=== PATIENT | male | born 1960 | race Caucasian/White ===

== ENCOUNTER 2021-09-19 12:08 | Inpatient (IN) | payer OTHER ==
[~2021-09-19] VITALS: Ht 172.7 cm; Wt 73.0 kg
[2021-09-19] VITALS (9 sets, daily range): BP systolic 112–129; BP diastolic 61–97
--- NOTE | 2021-09-19 12:08 | NUR ---
RECEIVED PT 61 YRS MALE WAKING IN FROM [facility] C/O ABNORMALE EGG DINESES CHEST PAIN c/o chest with exertion
--- NOTE | 2021-09-19 12:10 | NUR ---
SEEN BY DR. WU
--- NOTE | 2021-09-19 12:15 | NUR ---
EKG DONE BLOOD DROW AND SEND TO LAB
--- NOTE | 2021-09-19 12:30 | NUR ---
DEL DAY SENT TO LAB
--- NOTE | 2021-09-19 12:40 | NUR ---
SEEN BY INFORMATION SYSTEMS PROFESSOR ARLEY ROCA
[2021-09-19 12:53] LABS: BASOPHILS % (AUTO) 0.7 % (0.0-2.0); EOSINOPHILS % (AUTO) 2.4 % (0.0-6.0); HEMATOCRIT 45 % (39-51); HEMOGLOBIN 14.9 g/dL (13.5-17.5); LYMPHOCYTES # (AUTO) 1.2 K/uL (0.8-4.8); LYMPHOCYTES % (AUTO) 24.3 % (20.0-44.0); MEAN CORPUSCULAR HGB CONC 33 g/dl (31.0-36.0); MEAN CORPUSCULAR VOLUME 90 fL (80-96); MONOCYTES # (AUTO) 0.7 K/uL (0.1-1.30); MONOCYTES % (AUTO) 13.7 % (2.0-12.0); NEUTROPHILS % (AUTO) 58.9 % (43.0-81.0); PLATELET COUNT (AUTO) 275 K/uL (150-450); RED BLOOD CELL COUNT(AUTO) 4.95 MIL/uL (4.5-6.0); WHITE BLOOD COUNT (AUTO) 5.1 K/uL (4.3-11.0)
--- NOTE | 2021-09-19 12:53 | NUR ---
PLAN FOR PT TO CARDIAC CATH DINESESS CHEST PAIN
--- NOTE | 2021-09-19 12:55 | NUR ---
MOVESHEET SUBMITTED TO ADMITING
[2021-09-19 12:56] LABS: CALCIUM, SERUM 9.3 mg/dL (8.5-10.1); POTASSIUM 3.7 mmol/L (3.5-5.1)
[2021-09-19] MEDS ORDERED: ACETAMINOPHEN 325 MG TABLET PO PRN (13:00)
[2021-09-19] MEDS ORDERED: ONDANSETRON HCL/PF 4 MG/2 ML VIAL IVP PRN (13:00)
[2021-09-19] MEDS ORDERED: NITROGLYCERIN 0.4 MG/TAB BOTTLE SL PRN (13:00)
[2021-09-19] MEDS ORDERED: HYDROCODONE/APAP 5/325MG TABLET PO PRN (13:00)
[2021-09-19] MEDS ORDERED: Z GUARD REMEDY 4 OZ OINT TP PRN (13:00)
[2021-09-19] MEDS ORDERED: MAG HYDROX/AL HYDROX/SIMETH 30 ML UDC PO PRN (13:00)
[2021-09-19] MEDS ORDERED: IODIXANOL 320MG/ML 50 ML IV ONE (13:25)
[2021-09-19] MEDS ORDERED: IODIXANOL 150 ML IV ONE (13:25)
[2021-09-19] MEDS ORDERED: IV NS 0.9% 1,000 ML ONE (13:25)
[2021-09-19] MEDS ORDERED: LIDOCAINE HCL/MPF 1% 30 ML VIAL IJ ONE (13:26)
[2021-09-19] MEDS ORDERED: NITROGLYCERIN IN 5 % DEXTROSE 250 ML IV ONE (13:26)
--- NOTE | 2021-09-19 13:27 | NUR ---
no chest pain waing for lab result
[2021-09-19] MEDS ORDERED: MIDAZOLAM HCL 2 MG/2ML VIAL ONE (14:31)
[2021-09-19] MEDS ORDERED: FENTANYL PF 100MCG/2ML AMPUL ONE (14:31)
[2021-09-19] MEDS ORDERED: HEPARIN SODIUM, PORCINE 1,000 UNIT/ML VIAL ONE (15:39)
--- NOTE | 2021-09-19 15:49 | NUR ---
BED 261 ICU. ADMITTING NOTIFIED, NURSE NOTIFIED.
[2021-09-19] MEDS ORDERED: ASPIRIN 81 MG TAB.CHEW ONE (15:51)
[2021-09-19] MEDS ORDERED: TICAGRELOR 90 MG TABLET PO ONE (15:51)
--- NOTE | 2021-09-19 16:21 | NUR ---
CALLED FOR REPORT, NURSE NOT AVAILABLE. WILL CALL BACK IN 10MIN
[2021-09-19] MEDS ORDERED: MORPHINE SULFATE INJ 4 MG/ML DISP.SYRIN IV PRN (16:30)
--- NOTE | 2021-09-19 16:52 | NUR ---
RN NOTE PATIENT RECEIVED, AWAKE, A&OX4. PATIENT ON RA WITH NO SIGNS OF LABORED BREATHING SAT 98% ON BEDSIDE MONITOR. PT DOES NOT REPORT CHEST PAIN AT THIS TIME. TR BAND IN PLACE ON RIGHT WRIST WITH 18CC OF AIR PLACED AT 1613 PER REPORT FROM NURSING PROGRAM MANAGER NURSE. RIGHT HAND WARM WITH NORMAL SKIN COLOR, NO SIGNS OF BLEEDING AT TR BAND SITE. RIGHT AC AND LEFT AC SL IN PLACE. BED LOCKED AND IN LOWEST POSITION, CALL LIGHT WITHIN REACH, 3 SIDE RAILS UP.
[2021-09-19] MEDS: TICAGRELOR 90 MG TABLET PO SCH (17:30)
--- NOTE | 2021-09-19 18:15 | NUR ---
RN NOTE 3CC OF AIR REMOVED FROM TR BAND PER ORDER, NO SIGNS OF BLEEDING.
--- NOTE | 2021-09-19 18:31 | NUR ---
RN NOTE 4CC OF AIR REMOVED FOR TR BAND. NO SIGNS OF BLEEDING, NO REPORT OF CHEST PAIN.
--- NOTE | 2021-09-19 18:41 | NUR ---
RN CLOSING NOTE PATIENT REMAINS IN BED, A&OX4. PATIENT ON RA WITH NO SIGNS OF LABORED BREATHING AT THIS TIME. SR ON MONITOR. TR BAND IN PLACE, 7CC OUT OF 18CC REMOVED SO FAR WITH NO SIGNS OF BLEEDING AT SITE. RIGHT AND LEFT AC SL IN PLACE. BED LOCKED AND IN LOWEST POSITION, CALL LIGHT WITHIN REACH, 2 SIDE RAILS UP. WILL ENDORSE TO CHRONOMETER REPAIRER RN FOR BHUPENDRA.
--- NOTE | 2021-09-19 18:48 | NUR ---
RN NOTE 4CC OF AIR REMOVED FROM TR BAND. NO SIGNS OF BLEEDING.
--- NOTE | 2021-09-19 19:08 | NUR ---
RN NOTE 4CC OF AIR REMOVED FROM TR BAND. NO SIGNS OF BLEEDING.
--- NOTE | 2021-09-19 19:44 | NUR ---
ICU/RN: LAST 3ML AIR REMOVED FROM TC BAND. BAND REMOVED. NO BLEEDING NOTED. TRANSPARENT DRESSING APPLIED.
[2021-09-19] MEDS: METOPROLOL TARTRATE 25 MG TABLET PO SCH (21:00)
[2021-09-19] MEDS ORDERED: ATORVASTATIN 40 MG TABLET PO SCH (22:00)
[2021-09-19] MEDS ORDERED: MAGNESIUM HYDROXIDE 30 ML UDC PO PRN (22:00)
[2021-09-20] VITALS (13 sets, daily range): BP systolic 125–146; BP diastolic 79–93
[2021-09-20 04:55] LABS: BASOPHILS % (AUTO) 0.7 % (0.0-2.0); CALCIUM, SERUM 9.1 mg/dL (8.5-10.1); HEMATOCRIT 43 % (39-51); HEMOGLOBIN 14.6 g/dL (13.5-17.5); LYMPHOCYTES # (AUTO) 1.2 K/uL (0.8-4.8); LYMPHOCYTES % (AUTO) 22.5 % (20.0-44.0); MEAN CORPUSCULAR HGB CONC 34 g/dl (31.0-36.0); MEAN CORPUSCULAR VOLUME 89 fL (80-96); MONOCYTES # (AUTO) 0.6 K/uL (0.1-1.30); MONOCYTES % (AUTO) 11.7 % (2.0-12.0); NEUTROPHILS # (AUTO) 3.2 K/uL (1.8-8.9); NEUTROPHILS % (AUTO) 61.1 % (43.0-81.0); PHOSPHORUS 3.3 mg/dL (2.5-4.9); PLATELET COUNT (AUTO) 256 K/uL (150-450); POTASSIUM 3.9 mmol/L (3.5-5.1); RED BLOOD CELL COUNT(AUTO) 4.83 MIL/uL (4.5-6.0); WHITE BLOOD COUNT (AUTO) 5.3 K/uL (4.3-11.0)
[2021-09-20 05:09] LABS: THYROID STIMULATING HORMONE 1.411 uIU/mL (0.358-3.74)
[2021-09-20] MEDS ORDERED: PANTOPRAZOLE 40 MG TABLET.DR PO SCH (07:30)
--- NOTE | 2021-09-20 08:00 | NUR ---
rn notes received patient in the bed a/ox4. refused pain, right FA cath insertion side intact. due medication administered. patient tolerated breakfast well. seen boatbuilder wood Dr Loamx, and patient will go home in afternoon, will follow pcp, and boatbuilder wood. patient ambulatory, self care. no dizziness notes. was complaining of wheezing, get one time order via Dr Lomax breathing tx. order taken and carried out.
[2021-09-20] MEDS: METOPROLOL TARTRATE 25 MG TABLET PO SCH (08:03)
[2021-09-20] MEDS: TICAGRELOR 90 MG TABLET PO SCH (08:03)
[2021-09-20] MEDS ORDERED: methylPREDNISolone SOD SUCC 125 MG/2ML VIAL IV ONE (09:00)
[2021-09-20] MEDS ORDERED: ASPIRIN EC 81 MG TABLET.DR PO SCH (09:00)
[2021-09-20] MEDS ORDERED: ALBUTEROL HALF STRENGTH 1.25 MG/3 ML VIAL.NEB ONE (09:41)
[2021-09-20] MEDS ORDERED: DIAZ10TA PO (10:06)
[2021-09-20] MEDS ORDERED: ASPI-1169 PO (10:06)
[2021-09-20] MEDS ORDERED: TICA90TA PO (10:06)
[2021-09-20] MEDS ORDERED: METO25TA6 PO (10:09)
[2021-09-20] MEDS ORDERED: ATOR40TA PO (10:09)
[2021-09-20] MEDS ORDERED: ALBUTEROL HALF STRENGTH 1.25 MG/3 ML VIAL.NEB NEB ONE (11:30)
--- NOTE | 2021-09-20 12:35 | NUR ---
rn trauma notes Discharge diagnosis <Chest pain, unstable angina Abnormal EKG Status post PCI, severe disease, involving the midportion of the LAD-treated successfully with drug-eluting, stent (09/19/2021). patient discharge at this time going home self care. med reconciliation, and discharge order reviewed, and explained to the patient. patient sign paperwork, belonging with the patient. Discharge instructions <home, Follow-up with Dr. Ricardo next week, take medication as prescribed. medication Brilinta prescription handed to the patient. The patient verbalized understanding of care. escorted patient to the lobby for safety. 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
== END 2021-09-20 13:19 | disposition home or self-care (01) | DRG 247 ==
LOC: ER 12:19 → ICU 15:52
PROVIDERS: ADMIT Nurse Practitioner Acute Care; ATTEND Nurse Practitioner Acute Care
PROC: 027034Z Dilation of Coronary Artery, One Artery with Drug-eluting Intraluminal Device, Percutaneous Approach (ICD-10-PCS; principal; 2021-09-19)
PROC: 4A023N7 Measurement of Cardiac Sampling and Pressure, Left Heart, Percutaneous Approach (ICD-10-PCS; 2021-09-19)
PROC: B211YZZ Fluoroscopy of Multiple Coronary Arteries using Other Contrast (ICD-10-PCS; 2021-09-19)
DX: I25.110 Atherosclerotic heart disease of native coronary artery with unstable angina pectoris (principal); G47.00 Insomnia, unspecified
CPT/HCPCS: 36415; 71045-TC; 80048-TC; 83735-TC; 84100-TC; 84443-TC; 85025-TC; 85730-TC; 87081-TC; C1725; C1769; C1887; C9601; C9803; G0378; G0500; J1644; J2250; J2930; J3010; J3490; J7030; Q9967